=== PATIENT | male | born 1985 | race Caucasian/White ===

== ENCOUNTER 2023-08-13 19:54 | Emergency (ER) | payer BC, OTHER ==
[~2023-08-13] VITALS: Ht 175.3 cm; Wt 108.9 kg
[2023-08-13 20:05] VITALS: BP 129/77; PULSE 108; RESP 18; TEMP 98; O2SAT 99
== END 2023-08-13 21:58 | disposition home or self-care (01) ==
LOC: MED 19:54
DX: S92.411A Displaced fracture of proximal phalanx of right great toe, initial encounter for closed fracture (principal); I10 Essential (primary) hypertension; E11.9 Type 2 diabetes mellitus without complications; Z79.4 Long term (current) use of insulin; Z79.899 Other long term (current) drug therapy; W22.8XXA Striking against or struck by other objects, initial encounter; Y93.89 Activity, other specified; Y92.89 Other specified places as the place of occurrence of the external cause; Y99.8 Other external cause status
CPT/HCPCS: 73630; 73660; 99284